=== PATIENT | female | born 1995 | race American Indian/Alaskan Native ===

== ENCOUNTER 2017-10-08 11:01 | Inpatient (IN) | payer MEDICAID ==
[2017-10-08] MEDS ORDERED: BENADRYL PO PRN (12:47)
[2017-10-08] MEDS ORDERED: COLACE PO PRN (12:47)
[2017-10-08] MEDS ORDERED: TYLENOL PO PRN (12:47)
[2017-10-08] MEDS ORDERED: DEEP SEA NS PRN (12:47)
[2017-10-08] MEDS ORDERED: MAGNESIUM SULFATE 4GM/100ML 4 GM/100 ML BAG IV ONE (12:51)
[2017-10-08] MEDS ORDERED: MAGNESIUM SULFATE 40GM/1000ML 40 GM/1,000 ML BAG IV SCH (13:00)
[2017-10-08] MEDS ORDERED: LACTATED RINGERS 1,000 ML IV SCH (13:00)
[2017-10-08] MEDS ORDERED: CELESTONE SOLUSPAN IM SCH (13:00)
--- NOTE | 2017-10-08 13:11 | History and Physical Report ---
History of Present Illness Date of examination: 10/08/17 (sent from office 29w elevated blood pressure) Chief complaint: sent from office with elevated blood pressure and 3+ protein History of present illness: EDC Confirmation: 12/20/2017 Gestational Age: 16 1/7 weeks Past History : 1 Term Births: 0 Premature Births: 0 Living Children: 0 Para: 0 Mult. Births: 0 Prev : 0 Prev. attempt? 0 Aborta: 0 Elect. Ab: 0 Spont. Ab: 0 Ectopics: 0 Past Medical History: obesity Past Surgical History: T&A as child Past Medical History Surgery (Non-entry specialists): T&A as child Abnormal PAP: negative Family Hx: HTN - mother no known family hx cancer Social Hx: Single no ETOH/Smoking/drugs Infection History Hx of STD: none HIV Risk Eval: low risk Hepatitis B Risk Eval: low risk Personal hx. of genital herpes: no Partner hx. of genital herpes: no Rash, Viral, or Febrile illness since last LMP? no Varicella/Chicken Pox Status: Previous Disease Genetic History Congenital Heart Defect: Mom: no Dad: no Jed Disease: Mom: no Dad: no Thalassemia Mom: no Dad: no Neural Tube Defect Mom: no Dad: no Down's Syndrome Mom: no Dad: no Wolf-Sachs Mom: no Dad: no Sickle Cell Disease/Trait Mom: no Dad: no Hemophilia Mom: no Dad: no Muscular Dystrophy Mom: no Dad: no Cystic Fibrosis Mom: no Dad: no Aj Chorea Mom: no Dad: no Mental Retardation Mom: no Dad: no Fragile X Mom: no Dad: no Other Genetic/Chromosomal Disorder Mom: no Dad: yes Comments: sister with Cri du chat syndrome Child w/other defect Mom: no Dad: no Enviromental Exposures Xray Exposure: no Medication, drug, or alcohol use since LMP: no Chemical/Other Exposure: no Exposure to Cat Liter: no Hx of Parvovirus (Fifth Disease): no Occupational Exposure to Children: none Current Allergies (reviewed today): No known allergies Past History - Obstetrical History Expected Date of Delivery: 12/20/17 Actual Gestation: 29 Week(s) 4 Day(s) : 1 Para: 0 Hx # Term Pregnancies: 0 Number of Pregnancies: 0 Spontaneous Abortions: 0 Induced : 0 Number of Living Children: 0 Medications and Allergies Allergies Allergy/AdvReac Type Severity Reaction Status Date / Time No Known Allergies Allergy Verified 10/08/17 11:49 Active Meds: Active Medications Acetaminophen (Tylenol) 650 mg PO Q4H PRN PRN Reason: Pain MILD(1-3)/Fever >100.5/WELCH Betamethasone Acet/Betameth SodPhos (Celestone Soluspan) 12 mg IM Q24H BEBE Stop: 10/09/17 13:01 Diphenhydramine HCl (Benadryl) 25 mg PO Q6H PRN PRN Reason: Itching Docusate Sodium (Colace) 100 mg PO Q12H PRN PRN Reason: Constipation Hydralazine HCl (Apresoline) 5 mg IV Q30MIN PRN PRN Reason: Hypertension Lactated Ringer's (Lactated Ringers) 1,000 mls @ 125 mls/hr IV DIRECT BEBE Magnesium Sulfate (Magnesium Sulfate 40gm/1000ml) 40 gm in 1,000 mls @ 50 mls/ hr IV DIRECT BEBE Magnesium Sulfate (Magnesium Sulfate 4gm/100ml) 4 gm in 100 mls @ 300 mls/hr IV ONCE ONE Stop: 10/08/17 13:10 Multivitamins/Iron/Calcium ( Vitamin) 1 each PO QDAY BEBE Sodium Chloride (Deep Sea) 2 spray NS Q4H PRN PRN Reason: Congestion - Vital Signs Vital signs: Vital Signs Temp Pulse Resp BP Pulse Ox 98.9 F 100 H 16 175/113 100 10/08/17 11:50 10/08/17 11:50 10/08/17 11:50 10/08/17 11:50 10/08/17 11:50 Temp Pulse Resp BP Pulse Ox 98.9 F 111 H 16 186/107 100 10/08/17 11:50 10/08/17 13:03 10/08/17 11:50 10/08/17 13:03 10/08/17 11:50 - Physical Exam Breasts: Positive: deferred Cardiovascular: Regular rate, Normal S1, Normal S2 Lungs: Positive: Clear to auscultation Abdomen: Positive: normal appearance, soft, normal bowel sounds. Negative: distention, tenderness Genitourinary (Female): Positive: normal external genitalia Vulva: both: normal Vagina: Positive: normal moisture. Negative: discharge Cervix: Negative: lesion, discharge Uterus: Positive: normal size, normal contour Adnexa: both: normal Anus/Rectum: Positive: normal perianal skin, heme negative. Negative: rectal mass, hemorrhoids Extremities: Positive: edema Deep Tendon Reflex Grade: Normal but brisk +3 - Obstetrical FHR: auscultation normal (doppler 156 by CNM) Results All other labs normal. HBsAg Screen Negative Negative *1 RPR Non Reactive Non Reactive *2 Rubella Antibodies, IgG 5.22 index Immune >0.99 *3 Non-immune <0.90 Equivocal 0.90 - 0.99 Immune >0.99 ABO Grouping A *4 Rh Factor Positive *5 Please note: Prior records for this patient's ABO / Rh type are not available for additional verification. Antibody Screen Negative Negative *6 WBC 8.7 x10E3/uL 3.4-10.8 *7 RBC 4.75 x10E6/uL 3.77-5.28 *8 Hemoglobin 11.3 g/dL 11.1-15.9 *9 Hematocrit 36.3 % 34.0-46.6 *10 MCV [L] 76 fL 79-97 *11 MCH [L] 23.8 pg 26.6-33.0 *12 MCHC [L] 31.1 g/dL 31.5-35.7 *13 RDW [H] 17.9 % 12.3-15.4 *14 Platelets 259 x10E3/uL 150-379 *15 Neutrophils 73 % Not Estab. *16 Lymphs 19 % Not Estab. *17 Monocytes 6 % Not Estab. *18 Eos 1 % Not Estab. *19 Basos 0 % Not Estab. *20 ! Immature Cells <No Reported Value> *21 Neutrophils (Absolute) 6.4 x10E3/uL 1.4-7.0 *22 Lymphs (Absolute) 1.7 x10E3/uL 0.7-3.1 *23 Monocytes(Absolute) 0.5 x10E3/uL 0.1-0.9 *24 Eos (Absolute) 0.1 x10E3/uL 0.0-0.4 *25 Baso (Absolute) 0.0 x10E3/uL 0.0-0.2 *26 ! Immature Granulocytes 1 % Not Estab. *27 ! Immature Grans (Abs) 0.1 x10E3/uL 0.0-0.1 *28 ! NRBC <No Reported Value> *29 Hematology Comments: <No Reported Value> *30 Tests: (2) AFP Tetra ([id number]) ! Results Report *31 ! Test Results: *Screen Negative* *32 Tests: (3) Cystic Fibrosis Profile ([id number]) ! CF, Screen Comment: *55 RESULTS: Negative for 32 mutations analyzed Tests: (4) HB Solu + Rflx Frac (515343) Hemoglobin (Hgb) Solubility Negative Negative *57 Tests: (5) Panel 517711 ([id number]) HIV Screen 4th Generation wRfx Non Reactive Non Reactive *58 Tests: (6) Gest. Diabetes 1-Hr Screen (885073) ! Gestational Diabetes Screen 124 mg/dL 65-139 *59 According to ADA, a glucose threshold of >139 mg/dL after 50-gram load identifies approximately 80% of women with gestational diabetes mellitus, while the sensitivity is further increased to approximately 90% by a threshold of >129 mg/dL. Tests: (7) HCV Ab w/Rflx to Verification ([id number]) ! HCV Ab <0.1 s/co ratio 0.0-0.9 *60 Tests: (8) Comment: ([id number]) ! Comment: SPRCS *61 Non reactive HCV antibody screen is consistent with no HCV infection, unless recent infection is suspected or other evidence exists to indicate HCV infection. Tests: (9) Urine Culture, Routine ([id number]) Urine Culture, Routine Final report *62 Tests: (10) Result ([id number]) ! Result 1 No growth *63 Assessment and Plan - Patient Problems (1) Cat's cry syndrome Onset Date: ~10/08/17 Current Visit: Yes Status: Acute Plan to address problem: Pt does not have this. Her brother has Cri du Chat. NICU is aware it is a family history (2) Elevated blood pressure affecting in third trimester, antepartum Onset Date: ~10/08/17 Current Visit: Yes Status: Acute Plan to address problem: pt sent from office this AM with BP 200/100 X 2 3+ protein in urine dip stick. Pt BP on arrival 175/113 then 186/107 made aware Will admit, 24hr urine, MGSO4, BMZ, Apresoline, consults [facility] NICU, US. (3) BMI 50.0-59.9, adult Onset Date: ~10/08/17 Current Visit: Yes Status: Acute (4) 29 weeks gestation of Onset Date: ~10/08/17 Current Visit: Yes Status: Acute Plan to address problem: 22yo @ 29w4d gestation With sudden onset severe range BP Admitted for monitoring, management and evaluation. Orders in EMR. Dr.Youngblood caicedo.
[2017-10-08] MEDS: APRESOLINE IV PRN ×2 (13:55→14:24)
[2017-10-08] MEDS ORDERED: NORMODYNE IV ONE (14:45)
[2017-10-08 15:08] LABS: Hematocrit 38.2 % (30.3-42.9); Hemoglobin 12.4 gm/dl (10.1-14.3); Mean Corpuscular HGB Conc 33 % (30-34); Mean Corpuscular Hemoglobin 25 pg (28-32); Mean Corpuscular Volume 77 fl (79-97); Platelet Count 216 K/mm3 (140-440); Red Blood Count 4.99 M/mm3 (3.65-5.03); Red Cell Distribution Width 17.9 % (13.2-15.2)
[2017-10-08 15:10] LABS: Bacteria,Urine 1+ /HPF (Negative); Bilirubin,Urine NEG (Negative); Blood,Urine NEG (Negative); Color,Urine Amber (Yellow); Mucus,Urine 2+ /HPF; Urobilinogen,Urine < 2.0 mg/dL (<2.0)
[2017-10-08 15:11] LABS: Protein,Urine >500 mg/dL (Negative)
[2017-10-08 15:16] LABS: Alanine Aminotransferase 59 units/L (7-56)
--- NOTE | 2017-10-08 17:24 | Event Note ---
Date: 10/08/17 ([facility] contacted) Spoke with She will come see her tonight.
[2017-10-08 18:02] VITALS: BP 198/92
--- NOTE | 2017-10-08 18:39 | Event Note ---
Date: 10/08/17 I had a very long and michael conversation with the patient and her parents. Discussed the definition of preeclampsia. Discussed the difference between mild severe and moderate preeclampsia. Discussed the fact sequelae of disease includes dysfunction of the liver and kidneys. Discussed the unknown etiology of the disease. Discussed the role of magnesium sulfate to prevent seizures. Discussed the need for antihypertensives that she had been given to prevent possible stroke or seizures. Discussed the role of delivering the infant in preeclampsia. The patient and her mother states that they're concerned because since her elevated blood pressures in office which were 200s over 100s, that persists when she first arrived at hospital that she feels that everyone was moving towards delivery her infant. Again discussed the reasoning, that severe preeclampsia can lead to seizures, strokes and mother and . Again explained to her that her preeclampsia is severe. Asked questions about possible bed rest and observation. Discussed that bed rest in the hospital can play a role in mild eclampsia with hopes of that preeclampsia will not turn into severe preeclampsia. Again informed that her preeclampsia was already in the severe category. Discussed HELLP syndrome with the risks of multiple organ dysfunction and maternal . Again stressed that we did not have a known etiology to this disease nor known medications to stop the progression of the disease. Patient and mother state that they will prefer to go home and return to the office tomorrow. I did tell them that I could not agree with that plan because there will be no monitoring of her blood pressure, no monitoring of the , she would not have magnesium sulfate for seizure prophylaxis or receiving antihypertensive medications if required. Discussed the real possibility that the patient might have seizures, a stroke, placenta abruption and possible to both her infant if they could not arrived to the hospital in a timely manner if she went home. Patient's father asked me to let him discussed this more with the patient. The patient and her mother were stating that they prefer to leave the hospital and return to the office tomorrow. Patient also states she is going to leave AGAINST MEDICAL ADVICE
[2017-10-09] MEDS ORDERED: PRENATAL VITAMIN PO SCH (10:00)
== END 2017-10-08 20:15 | disposition left against medical advice (07) | DRG 781 ==
LOC: EDSTATUS 12:32 → TRG 12:39 → LD 12:40 → TRG 16:10
PROVIDERS: ADMIT Obstetrics & Gynecology; ATTEND Obstetrics & Gynecology
DX: O14.13 Severe pre-eclampsia, third trimester (principal); O99.213 Obesity complicating pregnancy, third trimester; E66.9 Obesity, unspecified; Z68.43 Body mass index [BMI] 50.0-59.9, adult; Z3A.29 29 weeks gestation of pregnancy; Z82.79 Family history of other congenital malformations, deformations and chromosomal abnormalities
CPT/HCPCS: 36415; 81001; 82565; 83615; 83735; 84450; 84460; 84550; 85027; 86850; 86900; 86901; J0360; J0702; J3475; J7120

== ENCOUNTER 2017-10-09 15:24 | Inpatient (IN) | payer MEDICAID ==
[2017-10-09] MEDS ORDERED: TYLENOL PO PRN (15:29)
[2017-10-09] MEDS ORDERED: ALUM-MAG HYDROX-SIMETH 200-200-20MG/5ML PO PRN (15:29)
[2017-10-09] MEDS ORDERED: AMBIEN PO PRN (15:29)
[2017-10-09] MEDS ORDERED: ZOFRAN IV PRN (15:29)
[2017-10-09] MEDS ORDERED: COLACE PO PRN (15:29)
[2017-10-09] MEDS ORDERED: DEEP SEA NS PRN (15:29)
[2017-10-09] MEDS ORDERED: BENADRYL PO PRN (15:29)
--- NOTE | 2017-10-09 15:39 | History and Physical Report ---
History of Present Illness Date of examination: 10/09/17 Date of admission: 10/09/17 15:24 Chief complaint: pt returned for management of pre-e shaun MUNOZ after leaving against medical advice yesterday History of present illness: EDC Confirmation: 12/20/2017 Past History : 1 Term Births: 0 Premature Births: 0 Living Children: 0 Para: 0 Mult. Births: 0 Prev : 0 Prev. attempt? 0 Aborta: 0 Elect. Ab: 0 Spont. Ab: 0 Ectopics: 0 Past Medical History: obesity Past Surgical History: T&A as child Past Medical History Surgery (Non-hospitality associate): T&A as child Abnormal PAP: negative Family Hx: HTN - mother no known family hx cancer Social Hx: Single no ETOH/Smoking/drugs Infection History Hx of STD: none HIV Risk Eval: low risk Hepatitis B Risk Eval: low risk Personal hx. of genital herpes: no Partner hx. of genital herpes: no Rash, Viral, or Febrile illness since last LMP? no Varicella/Chicken Pox Status: Previous Disease Genetic History Congenital Heart Defect: Mom: no Dad: no Jed Disease: Mom: no Dad: no Thalassemia Mom: no Dad: no Neural Tube Defect Mom: no Dad: no Down's Syndrome Mom: no Dad: no Wolf-Sachs Mom: no Dad: no Sickle Cell Disease/Trait Mom: no Dad: no Hemophilia Mom: no Dad: no Muscular Dystrophy Mom: no Dad: no Cystic Fibrosis Mom: no Dad: no Pablo Chorea Mom: no Dad: no Mental Retardation Mom: no Dad: no Fragile X Mom: no Dad: no Other Genetic/Chromosomal Disorder Mom: no Dad: yes Comments: sister with Cri du chat syndrome Child w/other defect Mom: no Dad: no Enviromental Exposures Xray Exposure: no Medication, drug, or alcohol use since LMP: no Chemical/Other Exposure: no Exposure to Cat Liter: no Hx of Parvovirus (Fifth Disease): no Occupational Exposure to Children: none Current Allergies (reviewed today): No known allergies Past History Past Medical History: other (see HPI) Past Surgical History: other (see HPI) [employer] History: other (see HPI) Family/Genetic History: other (see HPI) - Obstetrical History Expected Date of Delivery: 12/20/17 Actual Gestation: 29 Week(s) 5 Day(s) : 1 Para: 0 Hx # Term Pregnancies: 0 Number of Pregnancies: 0 Spontaneous Abortions: 0 Induced : 0 Medications and Allergies Allergies Allergy/AdvReac Type Severity Reaction Status Date / Time No Known Allergies Allergy Verified 10/09/17 16:52 Home Medications Medication Instructions Recorded Confirmed Last Taken Type Plus Tablet 1 tab PO DAILY 10/08/17 10/09/17 10/07/17 09:00 History 1 Active Meds: Active Medications Acetaminophen (Tylenol) 650 mg PO Q4H PRN PRN Reason: Pain MILD(1-3)/Fever >100.5/WELCH Al Hydrox/Mg Hydrox/Simethicone (Alum-Mag Hydrox-Simeth 422-655-53gj/5ml) 30 ml PO Q6H PRN PRN Reason: Indigestion Betamethasone Acet/Betameth SodPhos (Celestone Soluspan) 12 mg IM Q24HR BEBE Stop: 10/11/17 10:01 Diphenhydramine HCl (Benadryl) 25 mg PO Q6H PRN PRN Reason: Itching Docusate Sodium (Colace) 100 mg PO Q12H PRN PRN Reason: Constipation Hydralazine HCl (Apresoline) 10 mg IV Q30MIN PRN PRN Reason: Hypertension Lactated Ringer's (Lactated Ringers) 1,000 mls @ 125 mls/hr IV DIRECT BEBE Lactated Ringer's (Lactated Ringers) 1,000 mls @ 125 mls/hr IV DIRECT BEBE Magnesium Sulfate (Magnesium Sulfate 40gm/1000ml) 40 gm in 1,000 mls @ 50 mls/ hr IV DIRECT BEBE Magnesium Sulfate (Magnesium Sulfate 4gm/100ml) 4 gm in 100 mls @ 300 mls/hr IV ONCE ONE Stop: 10/09/17 15:51 Multivitamins/Iron/Calcium ( Vitamin) 1 each PO QDAY BEBE Ondansetron HCl (Zofran) 4 mg IV Q6H PRN PRN Reason: Nausea And Vomiting Sodium Chloride (Deep Sea) 2 spray NS Q4H PRN PRN Reason: Congestion Zolpidem Tartrate (Ambien) 10 mg PO ONCE PRN PRN Reason: Sleep Review of Systems All systems: negative - Physical Exam Breasts: Positive: normal Cardiovascular: Regular rate Lungs: Positive: Clear to auscultation, Normal air movement Abdomen: Positive: normal appearance, soft Genitourinary (Female): Positive: normal external genitalia - Obstetrical FHR: auscultation normal Uterine Contraction Monitor Mode: External Results Result Diagrams: 10/09/17 15:43 10/09/17 15:43 All other labs normal. Assessment and Plan 22y/o @ 29+5 weeks dx with severe pre-e shaun MUNOZ yesterday has returned after leaving against medical advice. She denies WELCH, blurred vision or epigastric pain. Her LFTs have increased since yesterday -today AST 120/ALT 104 (yesterday AST 60/ALT 59). b/p's 170's/100's. Reviewed plan of care with patient, s/o and pt's mother for mag sulfate to decrease risk of seizure activity r/t high blood pressure, antihypertensive medications to manage b/p, Second dose of steroids for lung maturity with the anticipate of premature delivery, lopez cath to be placed for accurate and strict I&O, start 24h urine, AMFM consult, NICU consult (Dr. Conteh aware) and u/s for EFW/BPP /Doppler studies. Dr. Melendrez aware of patient's arrival - Patient Problems (1) BMI 50.0-59.9, adult Onset Date: ~10/08/17 Current Visit: Yes Status: Acute (2) 29 weeks gestation of Onset Date: ~10/08/17 Current Visit: Yes Status: Acute (3) Elevated blood pressure affecting in third trimester, antepartum Onset Date: ~10/08/17 Current Visit: No Status: Acute
[2017-10-09] MEDS ORDERED: MAGNESIUM SULFATE 4GM/100ML 4 GM/100 ML BAG IV ONE (15:49)
[2017-10-09] MEDS ORDERED: APRESOLINE IV ONE (15:52)
[2017-10-09] MEDS ORDERED: LACTATED RINGERS 1,000 ML IV SCH (16:00)
[2017-10-09] MEDS ORDERED: MAGNESIUM SULFATE 40GM/1000ML 40 GM/1,000 ML BAG IV SCH (16:00)
[2017-10-09 16:11] LABS: Basophils % (Auto) 0.1 % (0.0-1.8); Hematocrit 35.3 % (30.3-42.9); Hemoglobin 11.5 gm/dl (10.1-14.3); Lymphocytes # (Auto) 1.3 K/mm3 (1.2-5.4); Lymphocytes % (Auto) 8.9 % (13.4-35.0); Mean Corpuscular HGB Conc 33 % (30-34); Mean Corpuscular Volume 76 fl (79-97); Monocytes % (Auto) 6.8 % (0.0-7.3); Platelet Count 259 K/mm3 (140-440); Red Blood Count 4.63 M/mm3 (3.65-5.03); Red Cell Distribution Width 17.8 % (13.2-15.2)
[2017-10-09 16:24] LABS: Alanine Aminotransferase 104 units/L (7-56); Uric Acid 9.4 mg/dL (3.5-7.6)
[2017-10-09] MEDS: LACTATED RINGERS 1,000 ML IV SCH (16:25)
[2017-10-09 16:29] LABS: Mean Corpuscular Hemoglobin 25 pg (28-32)
[2017-10-09] MEDS ORDERED: APRESOLINE IV PRN (16:32)
[2017-10-09] MEDS ORDERED: NORMODYNE IV ONE ×2 (17:02→20:00)
[2017-10-09] MEDS: NORMODYNE PO SCH ×2 (17:27→22:56)
--- NOTE | 2017-10-09 17:36 | Event Note ---
Date: 10/09/17 Pt re- presents for admission after having dx of severe Pre E and signing out AMA.BPs con't to be in the sever ranges. Will given IV and po bp meds as well as restart magnesium in an attempt to get second dose of steroids. 24 hour urine was not collected so will do so at this time pt pt made aware on yesterday that findings were c/w pre E and that delivery is the treatment. The protein/cr ratio also is c/w pre E. Pt noted to have elevated LFTS that have doubled since yesterday. Will await full consultation with m. Agree with MW exam and note.
--- NOTE | 2017-10-09 18:05 | Event Note ---
Date: 10/09/[address] Kumar, updated on labs and current blood pressures. Dr. Kumar will be in to see patient in the AM. He agrees with current plan of care. No further orders received.
--- NOTE | 2017-10-09 18:29 | Consultation ---
History of Present Illness Consult date: 10/09/17 Requesting physician: JIM TALLEY Reason for consult: prematurity History of present illness: 22 YO with severe pre-eclampsia at 29 weeks gestation. I met with both parents with grandmother. We discussed in detail the expected NICU course for a 29 weeker including delivery room resuscitation and the likelihood of intubation and mechanical ventilation. We discussed the need for UVC, UAC & the need for temperature regulation in an isolette. We discussed comorbidities such as IVH and its usp, implications. I emphasized the importance of providing breast milk for baby and encouraged mother to pump as soon as possible following delivery I answered all questions to the best of my ability and encouraged parents to call the NICU with further questions Plan: Agree with steroids and MgSO4 will attend delivery Please call NICu with questions Documentation - information: Height 5 ft 2.5 in Medications and Allergies Allergies Allergy/AdvReac Type Severity Reaction Status Date / Time No Known Allergies Allergy Verified 10/09/17 16:52 Home Medications Medication Instructions Recorded Confirmed Last Taken Type Plus Tablet 1 tab PO DAILY 10/08/17 10/09/17 10/07/17 09:00 History 1 Active Meds: Active Medications Acetaminophen (Tylenol) 650 mg PO Q4H PRN PRN Reason: Pain MILD(1-3)/Fever >100.5/WELCH Al Hydrox/Mg Hydrox/Simethicone (Alum-Mag Hydrox-Simeth [phone]/5ml) 30 ml PO Q6H PRN PRN Reason: Indigestion Betamethasone Acet/Betameth SodPhos (Celestone Soluspan) 12 mg IM Q24HR BEBE Stop: 10/09/17 18:01 Diphenhydramine HCl (Benadryl) 25 mg PO Q6H PRN PRN Reason: Itching Docusate Sodium (Colace) 100 mg PO Q12H PRN PRN Reason: Constipation Lactated Ringer's (Lactated Ringers) 1,000 mls @ 125 mls/hr IV DIRECT BEBE Last Admin: 10/09/17 16:25 Dose: 125 mls/hr Magnesium Sulfate (Magnesium Sulfate 40gm/1000ml) 40 gm in 1,000 mls @ 50 mls/ hr IV DIRECT BEBE Last Admin: 10/09/17 17:10 Dose: 2 gm/hr, 50 mls/hr Labetalol HCl (Normodyne) 300 mg PO BID [facility] Last Admin: 10/09/17 17:27 Dose: 300 mg Multivitamins/Iron/Calcium ( Vitamin) 1 each PO QDAY [facility] Ondansetron HCl (Zofran) 4 mg IV Q6H PRN PRN Reason: Nausea And Vomiting Sodium Chloride (Deep Sea) 2 spray NS Q4H PRN PRN Reason: Congestion Zolpidem Tartrate (Ambien) 10 mg PO ONCE PRN PRN Reason: Sleep Exam Vital Signs Pulse BP 123 H 186/104 10/09/17 16:15 10/09/17 16:15 Temp Pulse Resp BP Pulse Ox 98.2 F 102 H 18 157/93 94 10/09/17 16:56 10/09/17 18:23 10/09/17 16:56 10/09/17 18:17 10/09/17 18:23 Results - Laboratory Findings 10/09/17 15:43 10/09/17 15:43 Abnormal lab results 10/09/17 10/09/17 Range/Units 15:43 15:43 WBC 14.2 H (4.5-11.0) K/mm3 MCV 76 L (79-97) fl MCH 25 L (28-32) pg RDW 17.8 H (13.2-15.2) % Lymph % (Auto) 8.9 L (13.4-35.0) % Alexander # 1.0 H (0.0-0.8) K/mm3 Seg Neutrophils % 84.2 H (40.0-70.0) % Seg Neutrophils # 11.9 H (1.8-7.7) K/mm3 Uric Acid 9.4 H (3.5-7.6) mg/dL AST 120 H (5-40) units/L ALT 104 H (7-56) units/L Lactate Dehydrogenase 284 H (91-180) units/L
--- NOTE | 2017-10-09 19:29 | Ultrasound Report ---
FINAL REPORT EXAM: US OB BPP WO NON-STRESS HISTORY: efw/juana/bpp/doppler studies TECHNIQUE: Biophysical profile obstetrical ultrasound PRIORS: None. FINDINGS: clinical Age: 29 w 5 D LMP EDC 12/20/2017 Biophysical profile scoring 2 movement 2 tone 2 breathing 2 fluid 8/8 overall score Cardiac motion: 147 BPM using M-mode doppler Amniotic Fluid Volume: Adequate IMPRESSION: Single intrauterine viable with an approximate age of 29 weeks 5 days. Biophysical profile score is 8/8
--- NOTE | 2017-10-09 19:42 | Ultrasound Report ---
FINAL REPORT EXAM: US OB FOLLOW UP HISTORY: efw/tono/bpp/doppler studies TECHNIQUE: Standard full obstetrical ultrasound PRIORS: None. FINDINGS: LMP: 03/15/2017 clinical Age: 29 w 5 d US Age (average) = 29 w 3 d EFW (BPD,HC,AC,FL) = 1538 g +/- 228g (3 lbs 6 oz. +/- 8 oz.) LMP EDC 12/20/2017 US EDC 12/22/2017 CI 71.3 (range 74 to 83) HC/AC 0.98 (range 0.99 to 1.21) FL/BPD 78.0 (range 70.9 to 86.9) FL/HC 19.2 (range 18.4 to 22.0) FL/AC 18.9 (Range 20.0 to 24.0) BPD 6.8 cm corresponding to estimated age 27 weeks 2 days HC 27.5 cm corresponding to estimated age 30 weeks 1 day AC 28.0 cm corresponding to estimated age 32 weeks 0 days FL 5.3 cm corresponding to estimated age 20 weeks 1 day Presentation: Breech Activity: Monitored Placental location: Fundal Placental grade: 1 Cardiac motion: 143 BPM using M-mode doppler Amniotic Fluid Volume: Below normal limits TONO 6.1 cm (low) IMPRESSION: Single intrauterine viable with an approximate age of 29 weeks 3 days. TONO is low.
[2017-10-09] MEDS ORDERED: CELESTONE SOLUSPAN IM SCH (20:00)
--- NOTE | 2017-10-09 20:21 | Ultrasound Report ---
FINAL REPORT PROCEDURE: Doppler ultrasound umbilical artery TECHNIQUE: 2D imaging, pulse Doppler imaging and color-flow Doppler imaging of the umbilical artery was obtained. HISTORY: efw/juana/bpp/doppler studies COMPARISON: No prior studies are available for comparison. FINDINGS: Doppler evaluation of the umbilical arteries shows mildly elevated systolic to diastolic ratio 4.23 although good diastolic flow is seen throughout the samples. Resistive index averages 0.76 IMPRESSION: Resistive index and systolic to diastolic ratio are elevated however there is still good diastolic flow. Follow-up exam recommended.
--- NOTE | 2017-10-09 20:26 | Event Note ---
Date: 10/09/17 (late entry pt seen @1930) Provider at the bedside and again d/w pt and foc and pt mother the plan of care. I explained that lfts are worse today than on yesterday. I again d/w all need for early delivery for or maternal indications. All asked several questions all of which were addressed and answered. Will increased labetalol to 300mg tid if not improvement with iv meds that were given. Bp seems to be deceasing slowly after second dose of IV labetalol was given. Barber cath placed and pt now s/p second dose of steroids. Total of 30 min spent at bedside discussing plan of care and prognosis with the pt. All questions were addressed and answered.
[2017-10-09] MEDS: PROCARDIA XL PO SCH (21:29)
[2017-10-10] MEDS ORDERED: NORMODYNE IV ONE (00:20)
[2017-10-10] MEDS: LACTATED RINGERS 1,000 ML IV SCH ×2 (01:23→15:39)
--- NOTE | 2017-10-10 07:04 | Event Note ---
Date: 10/10/17 Pt UOP remains normal. She has gotten since admission 60mg of labetalol IV and 600mg of labetalol po and 60mg of procardial po. Her current bp meds are labetalol 300mg po bid and Procardia 60mg q day. Will sign off to oncoming provider and will also await recommendations by M. TONO was bordeline low on admission.Will repeat TONO this am as pt has gotten iV hydration as well as better BP control.
[2017-10-10] MEDS ORDERED: TYLENOL PO PRN (09:08)
[2017-10-10] MEDS: PEPCID IV SCH ×2 (09:48→22:06)
[2017-10-10] MEDS: NORMODYNE PO SCH ×2 (09:50→22:06)
[2017-10-10] MEDS: PRENATAL VITAMIN PO SCH (09:51)
[2017-10-10] MEDS ORDERED: CELESTONE SOLUSPAN IM SCH (10:00)
--- NOTE | 2017-10-10 10:04 | Ultrasound Report ---
FINAL REPORT EXAM: US OB LIMITED HISTORY: low TONO COMPARISON: Limited obstetric ultrasound performed on 10/09/2017 TECHNIQUE: Limited ultrasound was performed to evaluate for amniotic fluid index FINDINGS: Amniotic fluid index is 8.3 centimeters. heart rate is 137 beats per minute. IMPRESSION: Borderline low amniotic fluid index of 8.3 centimeters.
[2017-10-10 10:18] LABS: Alanine Aminotransferase 172 units/L (7-56); Uric Acid 9.5 mg/dL (3.5-7.6)
[2017-10-10 10:20] LABS: Hematocrit 34.1 % (30.3-42.9); Red Blood Count 4.44 M/mm3 (3.65-5.03)
[2017-10-10 10:21] LABS: Mean Corpuscular HGB Conc 32 % (30-34); Mean Corpuscular Hemoglobin 25 pg (28-32); Mean Corpuscular Volume 77 fl (79-97); Platelet Count 244 K/mm3 (140-440); Red Cell Distribution Width 17.8 % (13.2-15.2)
[2017-10-10] MEDS ORDERED: APRESOLINE IV ONE (11:08)
--- NOTE | 2017-10-10 11:25 | Progress Note ---
Assessment and Plan - Patient Problems (1) 29 weeks gestation of Onset Date: ~10/08/17 Current Visit: Yes Status: Acute (2) Pre-eclampsia during in third trimester, antepartum Current Visit: Yes Status: Acute Plan to address problem: With severe features:elevated LFT's and elevated BP's Currently on Labetalol 300mg bid and Procardia XL 30mg qd Waiting for MFM input for management recommendations (3) BMI 50.0-59.9, adult Onset Date: ~10/08/17 Current Visit: Yes Status: Acute (4) Fibroids Current Visit: Yes Status: Acute Qualifiers: Uterine leiomyoma location: intramural Qualified Code(s): D25.1 - Intramural leiomyoma of uterus Subjective - Subjective Date of service: 10/10/17 Principal diagnosis: IUP@29 07/30w Patient reports: movement normal, no new complaints, no loss of fluid, no vaginal bleeding, no contractions (Denies WELCH, visual changes or abdominal pain) Objective - Vital Signs Vital Signs: Vital Signs - 12hr 10/09/17 10/09/17 10/09/17 23:36 23:54 23:59 Temperature Pulse Rate 99 H 98 H 102 H Respiratory Rate Blood Pressure 173/105 Blood Pressure [Right] O2 Sat by Pulse 97 97 Oximetry 10/10/17 10/10/17 10/10/17 00:04 00:06 00:07 Temperature Pulse Rate 97 H 101 H 104 H Respiratory Rate Blood Pressure 178/110 Blood Pressure [Right] O2 Sat by Pulse 98 92 Oximetry 10/10/17 10/10/17 10/10/17 00:09 00:24 00:34 Temperature Pulse Rate 98 H 105 H 100 H Respiratory Rate Blood Pressure 183/111 136/81 Blood Pressure [Right] O2 Sat by Pulse 97 Oximetry 10/10/17 10/10/17 10/10/17 01:05 01:13 01:20 Temperature 96.8 F L Pulse Rate 101 H 101 H 102 H Respiratory 16 Rate Blood Pressure 141/85 137/78 Blood Pressure 141/85 [Right] O2 Sat by Pulse Oximetry 10/10/17 10/10/17 10/10/17 01:35 01:50 02:05 Temperature Pulse Rate 103 H 102 H 103 H Respiratory Rate Blood Pressure 133/77 129/81 131/80 Blood Pressure [Right] O2 Sat by Pulse Oximetry 10/10/17 10/10/17 10/10/17 02:20 02:35 02:50 Temperature Pulse Rate 102 H 100 H 102 H Respiratory Rate Blood Pressure 127/75 128/73 126/70 Blood Pressure [Right] O2 Sat by Pulse Oximetry 10/10/17 10/10/17 10/10/17 03:05 03:20 03:35 Temperature Pulse Rate 99 H 97 H 98 H Respiratory Rate Blood Pressure 120/66 127/70 129/70 Blood Pressure [Right] O2 Sat by Pulse Oximetry 10/10/17 10/10/17 10/10/17 03:50 04:05 04:20 Temperature Pulse Rate 105 H 100 H 110 H Respiratory Rate Blood Pressure 130/74 134/76 136/73 Blood Pressure [Right] O2 Sat by Pulse Oximetry 10/10/17 10/10/17 10/10/17 04:27 04:32 04:37 Temperature Pulse Rate 106 H 103 H 105 H Respiratory Rate Blood Pressure Blood Pressure [Right] O2 Sat by Pulse 98 98 97 Oximetry 10/10/17 10/10/17 10/10/17 04:42 04:47 05:06 Temperature Pulse Rate 104 H 105 H 106 H Respiratory Rate Blood Pressure Blood Pressure [Right] O2 Sat by Pulse 98 97 95 Oximetry 10/10/17 10/10/17 10/10/17 05:11 05:14 05:16 Temperature Pulse Rate 102 H 103 H 97 H Respiratory Rate Blood Pressure Blood Pressure [Right] O2 Sat by Pulse 96 94 95 Oximetry 10/10/17 10/10/17 10/10/17 05:20 05:21 05:26 Temperature Pulse Rate 98 H 98 H 95 H Respiratory Rate Blood Pressure Blood Pressure [Right] O2 Sat by Pulse 94 93 96 Oximetry 10/10/17 10/10/17 10/10/17 05:28 05:31 05:36 Temperature Pulse Rate 97 H 102 H 97 H Respiratory Rate Blood Pressure 120/74 Blood Pressure [Right] O2 Sat by Pulse 96 96 Oximetry 10/10/17 10/10/17 10/10/17 05:41 05:46 05:51 Temperature Pulse Rate 97 H 104 H 101 H Respiratory Rate Blood Pressure Blood Pressure [Right] O2 Sat by Pulse 97 97 97 Oximetry 10/10/17 10/10/17 10/10/17 05:56 05:58 06:01 Temperature Pulse Rate 100 H 104 H 102 H Respiratory Rate Blood Pressure 134/82 Blood Pressure [Right] O2 Sat by Pulse 96 98 Oximetry 10/10/17 10/10/17 10/10/17 06:06 06:11 06:28 Temperature Pulse Rate 101 H 99 H 96 H Respiratory Rate Blood Pressure 134/82 Blood Pressure [Right] O2 Sat by Pulse 98 97 Oximetry 10/10/17 10/10/17 10/10/17 06:40 06:45 06:49 Temperature Pulse Rate 97 H 99 H 101 H Respiratory Rate Blood Pressure Blood Pressure [Right] O2 Sat by Pulse 97 97 94 Oximetry 10/10/17 10/10/17 10/10/17 06:50 06:54 06:55 Temperature Pulse Rate 100 H 104 H Respiratory Rate Blood Pressure Blood Pressure [Right] O2 Sat by Pulse 95 72 L 93 Oximetry 10/10/17 10/10/17 10/10/17 06:58 07:28 07:58 Temperature Pulse Rate 103 H 108 H 100 H Respiratory Rate Blood Pressure 121/75 131/73 141/89 Blood Pressure [Right] O2 Sat by Pulse Oximetry 10/10/17 10/10/17 10/10/17 08:02 08:22 08:27 Temperature 97.8 F Pulse Rate 106 H 104 H Respiratory 20 Rate Blood Pressure Blood Pressure [Right] O2 Sat by Pulse 96 96 Oximetry 10/10/17 10/10/17 10/10/17 08:28 08:58 09:28 Temperature Pulse Rate 105 H 100 H 107 H Respiratory Rate Blood Pressure 138/84 140/84 137/82 Blood Pressure [Right] O2 Sat by Pulse 92 Oximetry 10/10/17 10/10/17 10/10/17 09:50 09:58 10:28 Temperature Pulse Rate 107 H 104 H 108 H Respiratory Rate Blood Pressure 137/82 176/103 168/101 Blood Pressure [Right] O2 Sat by Pulse Oximetry 10/10/17 10/10/17 10/10/17 10:46 10:56 10:58 Temperature Pulse Rate 102 H 103 H 106 H Respiratory Rate Blood Pressure 163/100 176/108 Blood Pressure [Right] O2 Sat by Pulse 98 Oximetry 10/10/17 10/10/17 10/10/17 11:01 11:06 11:11 Temperature Pulse Rate 109 H 111 H 107 H Respiratory Rate Blood Pressure Blood Pressure [Right] O2 Sat by Pulse 98 96 94 Oximetry 10/10/17 10/10/17 10/10/17 11:16 11:20 11:21 Temperature Pulse Rate 102 H 102 H 102 H Respiratory Rate Blood Pressure Blood Pressure [Right] O2 Sat by Pulse 91 93 91 Oximetry 10/10/17 10/10/17 10/10/17 11:25 11:26 11:28 Temperature Pulse Rate 100 H 102 H 101 H Respiratory Rate Blood Pressure 167/99 Blood Pressure [Right] O2 Sat by Pulse 93 98 Oximetry - Exam Breasts: deferred Lungs: Clear to auscultation, Normal air movement Abdomen: Present: normal appearance (obese), normal bowel sounds. Absent: tenderness, guarding Uterus: Present: other (unable to palpate) FHR: category 1 Uterine Contraction Monitor Mode: External Uterine Contraction Pattern: Absent Extremities: edema (2+) Deep Tendon Reflex Grade: Normal +2 - Labs Labs: Abnormal Labs 10/09/17 10/09/17 10/09/17 15:43 15:43 23:44 WBC 14.2 H MCV 76 L MCH 25 L RDW 17.8 H Lymph % (Auto) 8.9 L Lander # 1.0 H Seg Neutrophils % 84.2 H Seg Neutrophils # 11.9 H Creatinine Uric Acid 9.4 H Magnesium 4.90 H AST 120 H ALT 104 H Lactate Dehydrogenase 284 H 10/10/17 10/10/17 10/10/17 05:44 09:44 09:44 WBC 13.2 H MCV 77 L MCH 25 L RDW 17.8 H Lymph % (Auto) Lander # Seg Neutrophils % Seg Neutrophils # Creatinine 0.6 L Uric Acid 9.5 H Magnesium 5.40 H AST 184 H ALT 172 H Lactate Dehydrogenase 312 H 10/10/17 09:46 WBC MCV MCH RDW Lymph % (Auto) Lander # Seg Neutrophils % Seg Neutrophils # Creatinine Uric Acid Magnesium 5.60 H AST ALT Lactate Dehydrogenase Laboratory Results - last 24 hr 10/09/17 10/09/17 10/09/17 15:43 15:43 15:43 WBC 14.2 H RBC 4.63 Hgb 11.5 Hct 35.3 MCV 76 L MCH 25 L MCHC 33 RDW 17.8 H Plt Count 259 Lymph % (Auto) 8.9 L Lander % (Auto) 6.8 Eos % (Auto) 0.0 Baso % (Auto) 0.1 Lymph # 1.3 Lander # 1.0 H Eos # 0.0 Baso # 0.0 Seg Neutrophils % 84.2 H Seg Neutrophils # 11.9 H Creatinine 0.7 Estimated GFR > 60 Uric Acid 9.4 H Magnesium AST 120 H ALT 104 H Lactate Dehydrogenase 284 H Blood Type A POSITIVE Antibody Screen Negative 10/09/17 10/10/17 10/10/17 23:44 05:44 09:44 WBC 13.2 H RBC 4.44 Hgb 11.0 Hct 34.1 MCV 77 L MCH 25 L MCHC 32 RDW 17.8 H Plt Count 244 Lymph % (Auto) Lander % (Auto) Eos % (Auto) Baso % (Auto) Lymph # Lander # Eos # Baso # Seg Neutrophils % Seg Neutrophils # Creatinine Estimated GFR Uric Acid Magnesium 4.90 H 5.40 H AST ALT Lactate Dehydrogenase Blood Type Antibody Screen 10/10/17 10/10/17 09:44 09:46 WBC RBC Hgb Hct MCV MCH MCHC RDW Plt Count Lymph % (Auto) Lander % (Auto) Eos % (Auto) Baso % (Auto) Lymph # Lander # Eos # Baso # Seg Neutrophils % Seg Neutrophils # Creatinine 0.6 L Estimated GFR > 60 Uric Acid 9.5 H Magnesium 5.60 H AST 184 H ALT 172 H Lactate Dehydrogenase 312 H Blood Type Antibody Screen
[2017-10-10] MEDS: PROCARDIA XL PO SCH (11:38)
--- NOTE | 2017-10-10 12:18 | Event Note ---
Date: 10/10/17 S/w Dr. Kumar who states continue 24hour urine, feels she does not require delivery at this time. Repeat labs tomorrow.
[2017-10-10 13:05] LABS: Hepatitis A Antibody IgM Non-Reactive (NonReactive); Hepatitis B Core IgM Non-Reactive (NonReactive); Hepatitis B Surface Antigen Non-Reactive (Negative); Hepatitis C Virus Antibody Non-Reactive (NonReactive)
[2017-10-10] MEDS ORDERED: MAGNESIUM SULFATE 40GM/1000ML 40 GM/1,000 ML BAG IV ONE (13:27)
[2017-10-11] MEDS: LACTATED RINGERS 1,000 ML IV SCH ×2 (06:21→10:43)
[2017-10-11 07:31] LABS: Hematocrit 34.1 % (30.3-42.9); Hemoglobin 11.3 gm/dl (10.1-14.3); Mean Corpuscular HGB Conc 33 % (30-34); Mean Corpuscular Volume 76 fl (79-97); Platelet Count 225 K/mm3 (140-440); Red Blood Count 4.52 M/mm3 (3.65-5.03); Red Cell Distribution Width 17.8 % (13.2-15.2)
[2017-10-11 07:41] LABS: Mean Corpuscular Hemoglobin 25 pg (28-32)
[2017-10-11 07:58] LABS: Alanine Aminotransferase 250 units/L (7-56); Uric Acid 9.5 mg/dL (3.5-7.6)
--- NOTE | 2017-10-11 08:49 | Anesthesia Consultation ---
Anesthesia Consult and Med Hx Date of service: 10/11/17 - Airway Anesthetic Teeth Evaluation: Good ROM Head & Neck: Adequate Mental/Hyoid Distance: Adequate Mallampati Class: Class III Intubation Access Assessment: Possibly Difficult - Pulmonary Exam CTA: Yes - Cardiac Exam Cardiac Exam: RRR (2/6 MISSAEL) - Pre-Operative Health Status ASA Pre-Surgery Classification: ASA3, Emergency Proposed Anesthetic Plan: Epidural - Pulmonary Hx Asthma: No COPD: No Hx Pneumonia: No - Cardiovascular System Hx Hypertension: No - Central Nervous System Hx Seizures: No Hx Psychiatric Problems: Yes (depression, anxiety: took wellbutrin x2 mo.) - Endocrine Hx Renal Disease: No Hx End Stage Renal Disease: No Hx Hypothyroidism: No Hx Hyperthyroidism: No - Hematic Hx Anemia: No Hx Sickle Cell Disease: No - Other Systems Hx Alcohol Use: Yes (occas social) - Additional Comments Anesthesia Medical History Comments: Pt. with elevated LFT's , platelet count normal
--- NOTE | 2017-10-11 09:16 | Progress Note ---
Assessment and Plan - Patient Problems (1) 30 weeks gestation of Current Visit: Yes Status: Acute (2) Pre-eclampsia during in third trimester, antepartum Current Visit: Yes Status: Acute Plan to address problem: With worsening LFT's, negative viral hepatitis panel. waiting for 24hour urine result however with will proceed with delivery d/t concerns for liver rupture should continue. She was informed that she will be delviered by C- section d/t breech presentation, she may require a classical incision which will necessitate repeat c/s for all subsequent pregnancies. Risks with c/s explained: bleeding , infection, injury to bowel/bladder or major vascular injury that may require a blood transfusion. She was given the consents to review. (3) BMI 50.0-59.9, adult Onset Date: ~10/08/17 Current Visit: Yes Status: Acute (4) Fibroids Current Visit: Yes Status: Acute Qualifiers: Uterine leiomyoma location: intramural Qualified Code(s): D25.1 - Intramural leiomyoma of uterus Subjective - Subjective Date of service: 10/11/17 Principal diagnosis: IUP@30 0/7wga, Preeclampsia with worsening LFT's Patient reports: movement normal, no new complaints, no loss of fluid, no vaginal bleeding, no contractions (Denies WELCH, visual changes or abdominal pain) Objective - Vital Signs Vital Signs: Vital Signs - 12hr 10/10/17 10/10/17 10/10/17 21:40 22:06 22:40 Temperature Pulse Rate 90 90 93 H Respiratory Rate Blood Pressure 144/88 144/88 144/83 Blood Pressure [Right] 10/10/17 10/11/17 10/11/17 23:40 00:40 01:40 Temperature Pulse Rate 91 H 98 H 94 H Respiratory Rate Blood Pressure 121/70 127/71 131/77 Blood Pressure [Right] 10/11/17 10/11/17 10/11/17 03:40 04:41 06:07 Temperature 97.7 F Pulse Rate 96 H 104 H 98 H Respiratory 18 Rate Blood Pressure 138/76 127/58 Blood Pressure 132/91 [Right] 10/11/17 10/11/17 10/11/17 06:13 06:54 07:13 Temperature Pulse Rate 98 H 109 H 108 H Respiratory Rate Blood Pressure 132/91 142/82 140/82 Blood Pressure [Right] 10/11/17 08:54 Temperature Pulse Rate 113 H Respiratory Rate Blood Pressure 147/95 Blood Pressure [Right] - Exam Breasts: deferred Cardiovascular: Regular rate Lungs: Normal air movement Abdomen: Present: soft. Absent: tenderness Uterus: Absent: tenderness FHR: category 1 - Labs Labs: Abnormal Labs 10/09/17 10/09/17 10/09/17 15:43 15:43 23:44 WBC 14.2 H MCV 76 L MCH 25 L RDW 17.8 H Lymph % (Auto) 8.9 L Bartholomew # 1.0 H Seg Neutrophils % 84.2 H Seg Neutrophils # 11.9 H Creatinine Uric Acid 9.4 H Magnesium 4.90 H AST 120 H ALT 104 H Lactate Dehydrogenase 284 H 10/10/17 10/10/17 10/10/17 05:44 09:44 09:44 WBC 13.2 H MCV 77 L MCH 25 L RDW 17.8 H Lymph % (Auto) Bartholomew # Seg Neutrophils % Seg Neutrophils # Creatinine 0.6 L Uric Acid 9.5 H Magnesium 5.40 H AST 184 H ALT 172 H Lactate Dehydrogenase 312 H 10/10/17 10/11/17 10/11/17 09:46 07:03 07:03 WBC MCV 76 L MCH 25 L RDW 17.8 H Lymph % (Auto) Bartholomew # Seg Neutrophils % Seg Neutrophils # Creatinine 0.6 L Uric Acid 9.5 H Magnesium 5.60 H AST 233 H ALT 250 H Lactate Dehydrogenase 319 H Laboratory Results - last 24 hr 10/10/17 10/10/17 10/10/17 09:44 09:44 09:46 WBC 13.2 H RBC 4.44 Hgb 11.0 Hct 34.1 MCV 77 L MCH 25 L MCHC 32 RDW 17.8 H Plt Count 244 Creatinine 0.6 L Estimated GFR > 60 Uric Acid 9.5 H Magnesium 5.60 H AST 184 H ALT 172 H Lactate Dehydrogenase 312 H Hepatitis A IgM Ab Hep Bs Antigen Hep B Core IgM Ab Hepatitis C Antibody 10/10/17 10/11/17 10/11/17 11:29 07:03 07:03 WBC 11.0 RBC 4.52 Hgb 11.3 Hct 34.1 MCV 76 L MCH 25 L MCHC 33 RDW 17.8 H Plt Count 225 Creatinine 0.6 L Estimated GFR > 60 Uric Acid 9.5 H Magnesium AST 233 H ALT 250 H Lactate Dehydrogenase 319 H Hepatitis A IgM Ab Non-reactive Hep Bs Antigen Non-reactive Hep B Core IgM Ab Non-reactive Hepatitis C Antibody Non-reactive
--- NOTE | 2017-10-11 09:56 | Event Note ---
Date: 10/11/17 Consents reviewed and signed. 24hr urine 2.3g.
[2017-10-11] MEDS ORDERED: ANCEF/STERILE WATER 2 GM/20 ML 2 GM/20 ML SYRINGE IV NR (10:00)
[2017-10-11] MEDS ORDERED: LACTATED RINGERS 1,000 ML IV SCH ×2 (10:00→14:26)
[2017-10-11] MEDS ORDERED: PITOCin/NS 20 UNIT/1000ML DRIP 20 UNITS/1,000 ML BAG IV SCH ×2 (10:00→13:26)
[2017-10-11] MEDS ORDERED: PEPCID IV ONE (10:00)
[2017-10-11] MEDS ORDERED: REGLAN IV ONE (10:00)
[2017-10-11] MEDS ORDERED: BICITRA PO ONE (10:00)
[2017-10-11] MEDS: PROCARDIA XL PO SCH (10:05)
[2017-10-11] MEDS: NORMODYNE PO SCH ×3 (10:05→21:05)
[2017-10-11] MEDS: PEPCID IV SCH (10:05)
[2017-10-11] MEDS: PRENATAL VITAMIN PO SCH (10:06)
[2017-10-11] MEDS ORDERED: NACL 0.9% IR ONE (11:20)
[2017-10-11] MEDS ORDERED: WATER FOR IRRIG STERILE IR ONE (11:20)
[2017-10-11] MEDS ORDERED: NEO SYNEPHRINE/NS Syringe(OR USE) IV ONE (11:21)
[2017-10-11] MEDS ORDERED: ZOFRAN ONE (11:22)
[2017-10-11] MEDS ORDERED: XYLOCAINE MPF 2% ONE ×2 (11:57→11:58)
[2017-10-11] MEDS ORDERED: DILAUDID IV PRN (12:45)
[2017-10-11] MEDS ORDERED: NARCAN 0.4 MG/1 ML IV PRN ×2 (12:45→13:26)
[2017-10-11] MEDS ORDERED: PHENERGAN PR PRN ×2 (12:45→13:26)
[2017-10-11] MEDS ORDERED: PHENERGAN PO PRN (12:45)
[2017-10-11] MEDS ORDERED: SUBLIMAZE IV ONE (12:45)
[2017-10-11] MEDS ORDERED: ZOFRAN IV PRN ×2 (12:45→13:26)
[2017-10-11] MEDS ORDERED: SODIUM CHLORIDE FLUSH SYRINGE 10 ML IV SCH ×2 (13:00→13:26)
--- NOTE | 2017-10-11 13:13 | Operative Report ---
Operative Report Operative Report: Date: 10/11/2017 Preoperative diagnosis: 1. Intrauterine at 30 weeks gestation 2. Preeclampsia with severe features 3. Breech presentation 4. Body mass index 57 Postoperative diagnosis: 1. Intrauterine at 30 weeks gestation 2. Preeclampsia with severe features 3. Breech presentation 4. Body mass index 57 Procedure: Classical vertical incision for delivery Surgeon: Shweta Breen MD Chip Person: Alyssia Page CST Anesthesia: CSE Anesthesiologist: Dr. Ramos Estimated blood loss: 600 mL Urine out: 200 mL Findings: Live born female . Weight 3 lbs. 2 oz. Apgars 5 at 1 minute and 8 at 5 minutes. Uterus: Approximately 7 cm posterior lower uterine segment fibroid as well as multiple small subserosal and intramural fibroids, tubes grossly normal, ovaries grossly normal. Procedure: After risk, benefits, complications, consequences and alternatives for this procedure were discussed with patient and consents were reviewed and signed, she was taken to the OR where CSE anesthesia was placed. She was then placed in the left lateral tilt position, and prepped and draped in the usual sterile fashion. Timeout was performed, and an appropriate level of anesthesia was noted, a Pfannenstiel incision was made and extended to the fascia which was incised and extended in the lateral directions. The overlying fascia was sharply dissected away from the underlying rectus muscles in the superior and inferior directions. The midline was entered bluntly. The Aexus extra large retractor was placed. An undeveloped lower uterine segment was noted therefore a vertical midline Incision was performed in the uterus and extended in the superior inferior directions.. Clear fluid was noted. The infant was delivered from double footling breech position. Mouth and nose were bulb suctioned. Spontaneous cry and excellent tone were noted. After a 45 second delay as requested by the resuscitative team present, Cord was doubly clamped and cut. The was given to /resuscitation team present. The placenta was manually extracted. The uterus was then exteriorized and cleared of any further products of conception or placental tissue. The incision was reapproximated using 0 Vicryl in a running interlocking stitch. The incision was further reapproximated using 0 Vicryl in an imbricating fashion. The serosa was reapproximated using multiple figure-of- eight stitches of 0 Vicryl. Once hemostasis was noted, the uterus was allowed back into the pelvic cavity. The pelvis was irrigated with warm normal saline. Again hemostasis was noted . Surgicel applied for further hemostasis. Interceed was then placed to prevent adhesions. Then attention was turned to the rectus muscles. The rectus muscles reapproximated using 0 Vicryl in a simple interrupted stitch x 3. Once hemostasis was noted, the fascia was reapproximated using 0 Vicryl running stitch fashion. The subcuticular adipose tissue was reapproximated using 0 Vicryl in interrupted [id number] fashion. Once hemostasis was noted skin incision was reapproximated using 4-0 Vicryl on a Phi needle in a subcuticular manner. Counts were correct 3. Patient tolerated procedure well state recovery room in stable condition.
[2017-10-11] MEDS ORDERED: MORPHINE IV PRN (13:26)
[2017-10-11] MEDS ORDERED: MOTRIN PO PRN (13:26)
[2017-10-11] MEDS ORDERED: LANSINOH TP PRN (13:26)
[2017-10-11] MEDS ORDERED: TUCKS PAD TP PRN (13:26)
[2017-10-11] MEDS ORDERED: TYLENOL PO PRN (13:26)
[2017-10-11] MEDS ORDERED: APRESOLINE IV PRN (13:26)
[2017-10-11] MEDS ORDERED: MILK OF MAGNESIA PO PRN (13:26)
[2017-10-11] MEDS ORDERED: MYLICON PO PRN (13:26)
[2017-10-11] MEDS ORDERED: MAGNESIUM SULFATE 4GM/100ML 4 GM/100 ML BAG IV ONE ×2 (13:36→13:38)
[2017-10-11] MEDS ORDERED: MAGNESIUM SULFATE 40GM/1000ML 40 GM/1,000 ML BAG IV ONE (13:36)
[2017-10-11] MEDS ORDERED: MAGNESIUM SULFATE 40GM/1000ML 40 GM/1,000 ML BAG IV SCH (14:26)
--- NOTE | 2017-10-11 15:03 | Post Anesthesia Evaluation ---
- Post Anesthesia Evaluation Patient Participated: Yes Airway Patent: Yes Stable Respiratory Function: Yes Nausea/Vomiting: No Temp > 96.8F: Yes Pain Manageable: Yes Adequeate Hydration: Yes Anesthesia Complications: No Block Receding Appropriately: Yes Patient on Ventilator: No Other Comments: Able to move all extremities
[2017-10-11] MEDS: TORADOL IV PRN (18:14)
[2017-10-11] MEDS: ANCEF/NS 1 GM/50 ML 1 GM/50 ML BAG IV SCH (21:04)
[2017-10-11 23:10] LABS: Hematocrit 31.9 % (30.3-42.9); Hemoglobin 10.1 gm/dl (10.1-14.3)
[2017-10-12] MEDS: TORADOL IV PRN (04:33)
[2017-10-12] MEDS: ANCEF/NS 1 GM/50 ML 1 GM/50 ML BAG IV SCH (04:51)
[2017-10-12] MEDS ORDERED: BOOSTRIX IM ONE (06:00)
--- NOTE | 2017-10-12 06:54 | Progress Note ---
Assessment and Plan - Patient Problems (1) delivery delivered Onset Date: ~10/11/17 Current Visit: Yes Status: Acute Plan to address problem: Pt sitting up in bed C/o need to have BM. Bedpan provided. BP 150-140/90-70 afebrile FF below umb Lochia scant Dressing D&I H&H 12/23 stable Doing well s/p section d/t worsening PreE/Liver enzymes. P: continue pathway D /C MGSO4 @ 1415 Advance as tolerated to be made aware of pt. Subjective - Subjective Date of service: 10/12/17 (pt c/o need to have BM) Principal diagnosis: Day # 1 s/p section @30 0/7wga, Preeclampsia with worsening LFT's Patient reports: voiding normally (yellow urine to BSB) : transported ([facility]) Objective - Vital Signs Latest vital signs: Vital Signs Temp Pulse Resp BP BP Pulse Ox 10/12/17 06:05 98.3 F 107 H 16 133/79 94 10/12/17 04:33 18 10/12/17 01:43 98.4 F 100 H 16 121/67 94 10/11/17 21:21 98.6 F 100 H 16 140/74 93 10/11/17 21:05 94 H 135/79 10/11/17 18:43 98.1 F 107 H 20 144/91 94 10/11/17 15:18 95 H 151/97 93 10/11/17 15:16 99.0 F 96 H 22 149/101 94 10/11/17 14:15 93 H 16 124/75 98 10/11/17 14:10 92 H 16 135/66 98 10/11/17 14:05 91 H 16 135/81 98 10/11/17 14:00 91 H 16 126/82 98 10/11/17 13:55 91 H 16 134/91 98 10/11/17 13:50 89 16 130/83 98 10/11/17 13:45 90 18 129/98 98 10/11/17 13:40 91 H 18 121/86 100 10/11/17 13:35 82 16 118/88 98 10/11/17 13:30 84 126/87 98 10/11/17 13:25 82 16 130/90 98 10/11/17 13:20 88 16 134/89 98 10/11/17 13:15 88 16 130/88 10/11/17 13:10 89 16 120/87 98 10/11/17 13:05 93 H 16 132/89 10/11/17 13:00 80 16 126/79 98 10/11/17 12:55 85 16 121/80 98 10/11/17 12:50 890 H 16 111/72 100 10/11/17 12:45 92 H 16 116/74 98 10/11/17 12:40 92 H 18 116/76 98 10/11/17 12:35 97.8 F 94 H 18 112/63 98 10/11/17 10:05 113 H 147/95 10/11/17 08:54 113 H 147/95 10/11/17 07:13 108 H 140/82 Intake and Output 10/11/17 10/11/17 10/12/17 14:59 22:59 06:59 Intake Total 2295.833 50 Output Total 300 Balance 1995.833 50 Intake: IV 2295.833 50 ANCEF/NS 1 GM/50 ML 1 gm 50 In 50 ml @ 100 mls/hr IV Q8H BEBE Rx#:[id number] Lactated Ringers 1,000 ml 545.833 @ 125 mls/hr IV DIRECT BEBE Rx#:[id number] Output: Urine 300 Other: # Voids Indwelling Catheter 750 Estimated Blood Loss 600 - Exam Breasts: Present: normal (encouraged to pump), mass Lungs: Present: Clear to auscultation, Normal air movement Abdomen: Present: normal appearance, soft, normal bowel sounds Uterus: Present: normal, firm, fundal height below umbilicus Extremities: Present: normal, edema Deep Tendon Reflex Grade: Normal +2 Incision: Present: normal, dry, intact, dressed (to be removed) - Labs Labs: Abnormal lab results 10/09/17 10/11/17 10/11/17 Range/Units 08:00 07:03 07:03 MCV 76 L (79-97) fl MCH 25 L (28-32) pg RDW 17.8 H (13.2-15.2) % Creatinine 0.6 L (0.7-1.2) mg/dL Uric Acid 9.5 H (3.5-7.6) mg/dL Magnesium (1.7-2.3) mg/dL AST 233 H (5-40) units/L ALT 250 H (7-56) units/L Lactate Dehydrogenase 319 H (91-180) units/L Ur Total Protein 24 Hr 2363.00 H (2-200) Urine Total Protein 139 H (5-11.8) mg/dL 10/11/17 10/11/17 Range/Units 16:06 22:58 MCV (79-97) fl MCH (28-32) pg RDW (13.2-15.2) % Creatinine (0.7-1.2) mg/dL Uric Acid (3.5-7.6) mg/dL Magnesium 4.30 H 5.10 H (1.7-2.3) mg/dL AST (5-40) units/L ALT (7-56) units/L Lactate Dehydrogenase (91-180) units/L Ur Total Protein 24 Hr (2-200) Urine Total Protein (5-11.8) mg/dL
[2017-10-12] MEDS: NORMODYNE PO SCH ×3 (09:01→22:54)
[2017-10-12] MEDS: PROCARDIA XL PO SCH (11:13)
[2017-10-12] MEDS ORDERED: LOMOTIL PO PRN (22:42)
[2017-10-13] MEDS: PERCOCET 5/325 PO PRN ×3 (01:29→15:05)
[2017-10-13 05:56] LABS: Alanine Aminotransferase 215 units/L (7-56)
--- NOTE | 2017-10-13 08:14 | Progress Note ---
Assessment and Plan Patient resting w/o complaints. She is ambulating frequently. Lochia scant, incision D&I, H&H stable. AST/ALT have decreased from 233/250 to 148/215. labetalol 300mg TID: b/p is trending down most recent b/p's 120-130's/70-80's. She denies WELCH/visual changes or epigastric pain. Will continue to monitor closely, continue postop pathway. - Patient Problems (1) BMI 50.0-59.9, adult Onset Date: ~10/08/17 Current Visit: Yes Status: Acute (2) delivery delivered Onset Date: ~10/11/17 Current Visit: Yes Status: Acute (3) Pre-eclampsia Current Visit: Yes Status: Acute Qualifiers: Trimester: third trimester Qualified Code(s): O14.93 - Unspecified pre- eclampsia, third trimester Subjective - Subjective Date of service: 10/13/17 Principal diagnosis: Day # 2 s/p section; Preeclampsia Interval history: EDC Confirmation: 12/20/2017 Past History : 1 Term Births: 0 Premature Births: 0 Living Children: 0 Para: 0 Mult. Births: 0 Prev : 0 Prev. attempt? 0 Aborta: 0 Elect. Ab: 0 Spont. Ab: 0 Ectopics: 0 Past Medical History: obesity Past Surgical History: T&A as child Past Medical History Surgery (Non-supply tech): T&A as child Abnormal PAP: negative Family Hx: HTN - mother no known family hx cancer Social Hx: Single no ETOH/Smoking/drugs Infection History Hx of STD: none HIV Risk Eval: low risk Hepatitis B Risk Eval: low risk Personal hx. of genital herpes: no Partner hx. of genital herpes: no Rash, Viral, or Febrile illness since last LMP? no Varicella/Chicken Pox Status: Previous Disease Genetic History Congenital Heart Defect: Mom: no Dad: no Jed Disease: Mom: no Dad: no Thalassemia Mom: no Dad: no Neural Tube Defect Mom: no Dad: no Down's Syndrome Mom: no Dad: no Wolf-Sachs Mom: no Dad: no Sickle Cell Disease/Trait Mom: no Dad: no Hemophilia Mom: no Dad: no Muscular Dystrophy Mom: no Dad: no Cystic Fibrosis Mom: no Dad: no [place] Chorea Mom: no Dad: no Mental Retardation Mom: no Dad: no Fragile X Mom: no Dad: no Other Genetic/Chromosomal Disorder Mom: no Dad: yes Comments: sister with Cri du chat syndrome Child w/other defect Mom: no Dad: no Enviromental Exposures Xray Exposure: no Medication, drug, or alcohol use since LMP: no Chemical/Other Exposure: no Exposure to Cat Liter: no Hx of Parvovirus (Fifth Disease): no Occupational Exposure to Children: none Current Allergies (reviewed today): No known allergies Patient reports: appetite normal, voiding normally, pain well controlled, flatus , ambulating normally, no dizzy ambulation, no nauseated Toponas: transported Objective - Vital Signs Latest vital signs: Vital Signs Temp Pulse Resp BP BP Pulse Ox 10/13/17 01:29 18 10/13/17 00:06 97.9 F 102 H 18 124/84 96 10/12/17 22:54 88 130/70 10/12/17 17:57 99.7 F H 100 H 18 137/74 10/12/17 14:25 100 H 151/100 10/12/17 14:00 155/99 10/12/17 11:48 98.4 F 98 H 18 123/67 10/12/17 10:14 97.9 F 99 H 18 109/66 10/12/17 09:01 111 H 143/82 10/12/17 08:30 98.3 F 111 H 18 143/82 Intake and Output 10/12/17 10/13/17 10/13/17 23:59 07:59 15:59 Intake Total 600 240 Output Total 400 Balance 200 240 Intake: Oral 600 240 Output: Urine 400 Void 400 Other: Total, Intake Amount 240 240 Total, Output Amount 400 # Voids Void 1 # Bowel Movements 1 - Exam Breasts: Present: normal Cardiovascular: Present: Regular rate Lungs: Present: Clear to auscultation, Normal air movement Abdomen: Present: normal appearance, soft Uterus: Present: normal, firm, fundal height at umbilicus Extremities: Present: normal Deep Tendon Reflex Grade: Normal +2 Incision: Present: normal, dry, intact - Labs Labs: Abnormal lab results 10/12/17 10/12/17 10/13/17 Range/Units 07:28 10:04 05:08 Magnesium 5.10 H 4.50 H (1.7-2.3) mg/dL AST 148 H (5-40) units/L ALT 215 H (7-56) units/L Lactate Dehydrogenase 308 H (91-180) units/L
[2017-10-13] MEDS: NORMODYNE PO SCH ×3 (08:23→21:04)
[2017-10-13] MEDS: PROCARDIA XL PO SCH (10:04)
[2017-10-14] MEDS: PERCOCET 5/325 PO PRN ×2 (00:41→17:20)
--- NOTE | 2017-10-14 07:18 | Progress Note ---
Assessment and Plan - Patient Problems (1) delivery delivered Onset Date: ~10/11/17 Current Visit: Yes Status: Acute Plan to address problem: Pt desires d/c today if possible Exp to pt we are continuing to monitor her blood pressures 150-100/100-70 afebrile Edema in LE and her hands. FF below umb Lochia scant Incision D&I H&H stable No s/sx of anemia Stable s/p c/s of baby @ 29 weeks due to severe PreE P: continue pathway Will consult with for possible d/c Subjective - Subjective Date of service: 10/14/17 (pt c/o swelling) Principal diagnosis: Day # 3s/p section; Preeclampsia Patient reports: appetite normal, voiding normally, pain well controlled, ambulating normally [place]: transported Objective - Vital Signs Latest vital signs: Vital Signs Temp Pulse Resp BP BP Pulse Ox 10/14/17 04:30 98.7 F 79 18 101/74 10/14/17 01:30 98.7 F 78 18 147/94 10/13/17 21:04 71 121/79 10/13/17 19:30 98.7 F 71 16 121/79 10/13/17 18:08 98.3 F 105 H 18 153/98 98 10/13/17 16:03 97.8 F 89 20 120/82 97 10/13/17 14:27 102 H 20 140/97 97 10/13/17 14:20 140/97 10/13/17 13:05 96 H 152/103 10/13/17 12:34 98.9 F 96 H 24 146/101 97 10/13/17 12:01 146/101 10/13/17 12:00 152/103 10/13/17 10:08 140/82 10/13/17 08:23 90 154/88 10/13/17 08:21 98.9 F 90 18 154/88 Intake and Output 10/13/17 10/14/17 10/14/17 22:59 06:59 14:59 Intake Total 1160 300 Balance 1160 300 Intake: Oral 860 Intake, Free Water 300 300 Other: Total, Intake Amount 500 # Voids Void 1 - Exam Breasts: Present: normal Cardiovascular: Present: Regular rate Lungs: Present: Clear to auscultation, Normal air movement Abdomen: Present: normal appearance, soft, normal bowel sounds Vulva: both: normal Uterus: Present: normal, firm, fundal height below umbilicus Extremities: Present: edema Deep Tendon Reflex Grade: Normal +2 Incision: Present: normal, dry, intact
[2017-10-14] MEDS: NORMODYNE PO SCH ×2 (08:10→13:00)
[2017-10-14] MEDS: PROCARDIA XL PO SCH (11:14)
--- NOTE | 2017-10-14 13:54 | Discharge Summary ---
Providers - Providers Date of Admission: 10/09/17 15:24 Date of discharge: 10/14/17 (pt requesting d/c today if possible) Attending physician: SHIVA KEMP 10/11/17 13:26 Consult to Teleradiologist [CONS] Routine Reason For Exam: Primary care physician: SHIVA KEMP Hospitalization Reason for admission: other (severe PreE) Delivery: Procedure: primary low transverse Episiotomy: none Laceration: none Incision: normal, dry, intact Other procedures: none complications: none Discharge diagnosis: delivery baby: male (transported to [facility] course: uncomplicated emergency section: breech presentation; worsening liver enzymes Condition at discharge: Good Disposition: [id number] TO HOME OR SELFCARE - Discharge Diagnoses (1) delivery delivered Status: Acute Comment: RTO Thursday for BP check Plan - Discharge Medications Prescriptions: Ibuprofen [Motrin 800 MG tab] 800 mg PO TID PRN #30 tablet PRN Reason: Pain oxyCODONE /ACETAMINOPHEN [Percocet 5/325 mg] 1 - 2 tab PO Q4HR PRN #30 tablet PRN Reason: Pain - Provider Discharge Summary Activity: routine, no sex for 6 weeks, no heavy lifting 4 weeks, no strenuous exercise Diet: other (no salt; hydration) Instructions: routine Additional instructions: [] Smoking cessation referral if applicable(refer to patient education folder for contact #) [] Refer to [facility] Booklet Call your doctor immediately for: * Fever > 100.5 * Heavy vaginal bleeding ( >1 pad per hour) * Severe persistent headache * Shortness of breath * Reddened, hot, painful area to leg or breast * Drainage or odor from incision. * Keep incision clean and dry at all times and follow doctor's instructions regarding bathing/showering - Follow up plan Follow up: SHIVA KEMP MD [Primary Care Provider] - 10/16/17 (Please keep your appointment Thursday @ 10:30AM in the [place] office for blood pressure check. Continue taking medications as prescribed. Call with any concerns.)
[2017-10-14 16:43] VITALS: BP 147/99
== END 2017-10-14 19:20 | disposition home or self-care (01) | DRG 765 ==
LOC: LD 15:24 → OB 10-11 16:02
PROVIDERS: ADMIT Obstetrics & Gynecology; ATTEND Obstetrics & Gynecology
PROC: 10D00Z0 Extraction of Products of Conception, High, Open Approach (ICD-10-PCS; principal; 2017-10-11)
DX: O64.1XX0 Obstructed labor due to breech presentation, not applicable or unspecified (principal); O60.14X0 Preterm labor third trimester with preterm delivery third trimester, not applicable or unspecified; O41.03X0 Oligohydramnios, third trimester, not applicable or unspecified; O99.344 Other mental disorders complicating childbirth; F32.9 Major depressive disorder, single episode, unspecified; F41.9 Anxiety disorder, unspecified; O99.314 Alcohol use complicating childbirth; O34.13 Maternal care for benign tumor of corpus uteri, third trimester; Z37.0 Single live birth; Z72.89 Other problems related to lifestyle; Z82.49 Family history of ischemic heart disease and other diseases of the circulatory system; Z3A.29 29 weeks gestation of pregnancy; Z79.899 Other long term (current) drug therapy; D25.1 Intramural leiomyoma of uterus; O14.14 Severe pre-eclampsia complicating childbirth
CPT/HCPCS: 36415; 76815; 76816; 76819; 76820; 80074; 82565; 83615; 83735; 84156; 84450; 84460; 84550; 85014; 85018; 85025; 85027; 86850; 86900; 86901; 88307; 99211; G0463; J0360; J0690; J0702; J1170; J1885; J2370; J2405; J2590; J2765; J3475; J7120